=== PATIENT | male | born 1970 | race American Indian/Alaskan Native ===

== ENCOUNTER 2017-10-05 10:21 | Emergency (ER) | payer MEDICARE ==
[2017-10-05] MEDS ORDERED: TYLENOL #3 PO ONE (15:13)
[2017-10-05] MEDS ORDERED: AUGMENTIN 875 MG PO ONE (15:13)
--- NOTE | 2017-10-05 15:18 | Emergency Department Report ---
HPI - General Chief Complaint: Dental/Oral Time Seen by Provider: 10/05/17 15:11 - HPI HPI: The patient is a 47-year-old male who presents to ED complaining of 10/10 pain in the upper frontal of his mouth x 4 days . Patient states that the pain started 4 days ago and has increased in severity over the last 2 days. The pain is exacerbated by eating and opening of the mouth. Patient states the pain is alleviated initially with pain medication but comes back. Patient describes a as a throbbing, pressure-like sensation. Patient states otherwise well and has no other complaints. Patient has had no fevers and no chills. No chest pain, no shortness of breath. No abdominal pain. No shortness of breath or recent trauma to the face. ED Past Medical Hx - Past Medical History Previous Medical History?: Yes Hx Hypertension: Yes (no meds) Hx Renal Disease: Yes (HD on --) - Surgical History Past Surgical History?: Yes Additional Surgical History: Right arm AV fistula - Social History Smoking Status: Current Every Day Smoker Substance Use Type: Non Opiate Pain - Medications Home Medications: Home Medications Medication Instructions Recorded Confirmed Last Taken Type Acetaminophen/Codeine [Tylenol 1 tab PO Q6H #12 tablet 10/05/17 Unknown Rx /Codeine # 3 tab] Amoxicillin/K Clav Tab [Augmentin 1 each PO BID #20 tablet 10/05/17 Unknown Rx 875MG TAB] Ibuprofen [Motrin] 800 mg PO Q8HR PRN #30 tablet 10/05/17 Unknown Rx ED Review of Systems ROS: Stated complaint: TOOTH ABSCESS Other details as noted in HPI Constitutional: denies: chills, fever Eyes: denies: eye pain, eye discharge, vision change ENT: dental pain. denies: ear pain, throat pain, congestion Respiratory: denies: cough, shortness of breath, wheezing Cardiovascular: denies: chest pain, palpitations Endocrine: no symptoms reported Gastrointestinal: denies: abdominal pain, nausea, diarrhea Genitourinary: denies: urgency, dysuria Musculoskeletal: denies: back pain, joint swelling, arthralgia Skin: denies: rash, lesions Neurological: denies: headache, weakness, paresthesias Psychiatric: denies: anxiety, depression Hematological/Lymphatic: denies: easy bleeding, easy bruising Physical Exam - Physical Exam Vital Signs: Vital Signs 10/05/17 11:13 Temperature 99.8 F H Pulse Rate 78 Respiratory 18 Rate Blood Pressure 120/72 O2 Sat by Pulse 99 Oximetry Physical Exam: GENERAL: Alert and oriented x3, no apparent distress, Normal Gait, atraumatic. HEAD: Head is normocephalic and a-traumatic. NOSE: Nose symetrical, Nontender,Nares appeared normal. MOUTH:Mouth is well hydrated and without lesions. Tonsils nonerythematous or swollen, Uvula midline, Tongue not elevated. Mucous membranes are moist. Posterior pharynx clear, no exudate or lesions. Patent airways. Gingival enlargement of tooth 8 and 9, tender to palpation, no visible discharge or bleeding visualized NECK: Supple. Non edematous, No carotid bruits. No lymphadenopathy or thyromegaly. No C-spine tenderness LUNGS: Symetrical with respiration, No wheezing, no rales or crackles, CTAB. HEART: S1, S2 present, regular rate and rhythm without murmur, no rubs, no gallops. Non tender to palpation SKIN: Warm and dry, No lesions, No ulceration or induration present. ED Course Vital Signs 10/05/17 11:13 Temperature 99.8 F H Pulse Rate 78 Respiratory 18 Rate Blood Pressure 120/72 O2 Sat by Pulse 99 Oximetry ED Medical Decision Making - Medical Decision Making 47-year-old male who presents with dental abscess secondary to odontogenic infection ED course: Patient received 875 mg of Augmentin, 2 tablets of Tylenol No. 3. Odontogenic infection versus ear infection. Based upon history and physical examination, pain is a result of an infection of tooth number 8 and 9 that the pain. Pt feels on the upper lip his face from reffered pain Pt has no evidence of acute impending airway compromise. At this point, patient will be discharged home on some antibiotics and pain trial, he will do well with an outpatient course of antibiotics. Follow up with the Dental Clinic as referred Vital signs are normal patient is in no acute distress. Pt had an effect uneventful ED stay Critical care attestation.: If time is entered above; I have spent that time in minutes in the direct care of this critically ill patient, excluding procedure time. ED Disposition Clinical Impression: Dental abscess Disposition: - TO HOME OR SELFCARE Is pt being admited?: No Does the pt Need Aspirin: No Condition: Stable Instructions: Dental Abscess (ED), Toothache (ED) Additional Instructions: Make sure to follow up with the dentist as discussed. Take all your medications as you've been prescribed. If you have any worsening symptoms or develop new symptoms please return to ED immediately. Prescriptions: Acetaminophen/Codeine [Tylenol /Codeine # 3 tab] 1 tab PO Q6H #12 tablet Amoxicillin/K Clav Tab [Augmentin 875MG TAB] 1 each PO BID #20 tablet Ibuprofen [Motrin] 800 mg PO Q8HR PRN #30 tablet PRN Reason: Pain Referrals: PRIMARY CARE,MD [Primary Care Provider] - 3-5 Days [facility] [Outside] - 3-5 Days [facility] [Outside] - 3-5 Days Forms: Accompanied Note, Work/School Release Form(ED) Time of Disposition: 15:36
[2017-10-05 16:13] VITALS: BP 120/70
== END 2017-10-05 16:12 | disposition home or self-care (01) ==
LOC: ED 10:21
DX: K04.7 Periapical abscess without sinus (principal); F17.200 Nicotine dependence, unspecified, uncomplicated; I12.0 Hypertensive chronic kidney disease with stage 5 chronic kidney disease or end stage renal disease; N18.6 End stage renal disease; Z99.2 Dependence on renal dialysis
CPT/HCPCS: 99282

== ENCOUNTER 2018-01-16 09:55 | Emergency (ER) | payer MEDICARE ==
[2018-01-16 10:04] VITALS: BP 132/94
[2018-01-16] MEDS ORDERED: ZOFRAN ODT PO ONE (11:49)
[2018-01-16] MEDS ORDERED: BENTYL IM ONE (11:49)
--- NOTE | 2018-01-16 11:51 | Emergency Department Report ---
Blank Doc - Documentation Documentation: Patient is a 47-year-old male who is presenting with 2 days of nausea vomiting diarrhea. Patient has had more diarrhea than he has vomiting. Patient states this been present for approximately 2 days. Patient is on hemodialysis and they go to dialysis yesterday. Patient was told his labs were within normal limits yesterday. Patient states he did have some crampy abdominal pain with diarrhea yesterday but this is resolved. Patient denies any fever or abdominal pain at this time. Brief physical exam patient has a soft abdomen with normal bowel soun that is nontender is no rebound no guarding. Patient lungs are clear to auscultation. Patient will be given Zofran ODT and a shot of Bentyl and the patient will be reassessed with another exam and will also check of the patient's ability to tolerate by mouth. Raffaele
--- NOTE | 2018-01-16 13:40 | Emergency Department Report ---
ED General Adult HPI - General Chief complaint: Abdominal Pain Stated complaint: STOMACH PROBLEMS Time Seen by Provider: 01/16/18 11:31 Source: patient Mode of arrival: Ambulatory Limitations: No Limitations - History of Present Illness Initial comments: Patient is a 47-year-old male who is presenting with 2 days of nausea vomiting diarrhea. Patient has had more diarrhea than he has vomiting. Patient states this been present for approximately 2 days. Patient is on hemodialysis and they go to dialysis yesterday. Patient was told his labs were within normal limits yesterday. Patient states he did have some crampy abdominal pain with diarrhea yesterday but this is resolved. Patient denies any fever or abdominal pain at this time. Patient does report that he had watermelon and noticed after that he started to have stomach pain vomiting and diarrhea. -: days(s) (3) Quality: aching Consistency: intermittent Improves with: medication Worsens with: none Associated Symptoms: other (diarrhea) Treatments Prior to Arrival: none - Related Data Previous Rx's Medication Instructions Recorded Last Taken Type Acetaminophen/Codeine [Tylenol 1 tab PO Q6H #12 tablet 10/05/17 Unknown Rx /Codeine # 3 tab] Amoxicillin/K Clav Tab [Augmentin 1 each PO BID #20 tablet 10/05/17 Unknown Rx 875MG TAB] Ibuprofen [Motrin] 800 mg PO Q8HR PRN #30 tablet 10/05/17 Unknown Rx Allergies Allergy/AdvReac Type Severity Reaction Status Date / Time No Known Allergies Allergy Unverified 10/05/17 11:13 ED Review of Systems ROS: Stated complaint: STOMACH PROBLEMS Other details as noted in HPI Constitutional: denies: chills, fever Eyes: denies: eye pain, eye discharge, vision change ENT: denies: ear pain, throat pain Respiratory: denies: cough, shortness of breath, wheezing Cardiovascular: denies: chest pain, palpitations Endocrine: no symptoms reported Gastrointestinal: abdominal pain (has resolved), diarrhea Genitourinary: denies: urgency, dysuria Musculoskeletal: denies: back pain, joint swelling, arthralgia Skin: denies: rash, lesions Neurological: denies: headache, weakness, paresthesias Psychiatric: denies: anxiety, depression Hematological/Lymphatic: denies: easy bleeding, easy bruising ED Past Medical Hx - Past Medical History Previous Medical History?: Yes Hx Hypertension: Yes (no meds) Hx Renal Disease: Yes (HD on M-W-) - Surgical History Past Surgical History?: Yes Additional Surgical History: Right arm AV fistula - Social History Smoking Status: Current Every Day Smoker Substance Use Type: Prescribed - Medications Home Medications: Home Medications Medication Instructions Recorded Confirmed Last Taken Type Acetaminophen/Codeine [Tylenol 1 tab PO Q6H #12 tablet 10/05/17 Unknown Rx /Codeine # 3 tab] Amoxicillin/K Clav Tab [Augmentin 1 each PO BID #20 tablet 10/05/17 Unknown Rx 875MG TAB] Ibuprofen [Motrin] 800 mg PO Q8HR PRN #30 tablet 10/05/17 Unknown Rx ED Physical Exam - General Limitations: No Limitations General appearance: alert, in no apparent distress - Head Head exam: Present: atraumatic, normocephalic - Eye Eye exam: Present: normal appearance - ENT ENT exam: Present: mucous membranes moist - Neck Neck exam: Present: normal inspection - Respiratory Respiratory exam: Present: normal lung sounds bilaterally. Absent: respiratory distress - Cardiovascular Cardiovascular Exam: Present: regular rate, normal rhythm. Absent: systolic murmur, diastolic murmur, rubs, gallop - GI/Abdominal GI/Abdominal exam: Present: soft, normal bowel sounds - Rectal Rectal exam: Present: deferred - Extremities Exam Extremities exam: Present: normal inspection, other (right upper arm shunt with a thrill) - Back Exam Back exam: Present: normal inspection - Neurological Exam Neurological exam: Present: alert, oriented X3 - Psychiatric Psychiatric exam: Present: normal affect, normal mood - Skin Skin exam: Present: warm, dry, intact, normal color. Absent: rash ED Course Vital Signs 01/16/18 10:01 Temperature 98.7 F Pulse Rate 81 Respiratory 16 Rate Blood Pressure 132/94 O2 Sat by Pulse 98 Oximetry ED Medical Decision Making - Medical Decision Making Patient has been evaluated by this provider as well as Dr. Marcus. Patient was given Bentyl and Zofran. Patient reports he feels much better. He reports he thinks it was the watermelon that he ate. Patient does have dialysis tomorrow. Discussed patient stay away from watermelon as it has high fiber and water which may increase his water intake for dialysis. Critical care attestation.: If time is entered above; I have spent that time in minutes in the direct care of this critically ill patient, excluding procedure time. ED Disposition Clinical Impression: Nonspecific abdominal pain Diarrhea Qualifiers: Diarrhea type: unspecified type Qualified Code(s): R19.7 - Diarrhea, unspecified Disposition: DC- TO HOME OR SELFCARE Is pt being admited?: No Does the pt Need Aspirin: No Condition: Stable Instructions: Acute Diarrhea (ED) Additional Instructions: Please refrain from eating watermelon. Follow up with her primary care provider or dialysis provider. Referrals: PRIMARY CARE,MD [Primary Care Provider] - 3-5 Days your,provider [Other] - 3-5 Days Forms: Work/School Release Form(ED), Accompanied Note
== END 2018-01-16 13:45 | disposition home or self-care (01) ==
LOC: ED 09:55
DX: R10.9 Unspecified abdominal pain (principal); R11.2 Nausea with vomiting, unspecified; R19.7 Diarrhea, unspecified; I10 Essential (primary) hypertension; F17.200 Nicotine dependence, unspecified, uncomplicated
CPT/HCPCS: 96372; 99282; J0500; Q0162